=== PATIENT | female | born 1960 ===

== ENCOUNTER → 2017-12-03 | Outpatient (CLI) | payer OTHER | END | disposition home or self-care (01) | LOC: LAB 11:56 | DX: E55.9 Vitamin D deficiency, unspecified (principal); M85.9 Disorder of bone density and structure, unspecified; D64.89 Other specified anemias; D68.8 Other specified coagulation defects; N39.0 Urinary tract infection, site not specified; Z76.89 Persons encountering health services in other specified circumstances; M20.11 Hallux valgus (acquired), right foot; M20.5X1 Other deformities of toe(s) (acquired), right foot; E88.89 Other specified metabolic disorders; A49.02 Methicillin resistant Staphylococcus aureus infection, unspecified site ==

== ENCOUNTER 2018-03-28 16:06 | Emergency (ER) | payer OTHER ==
[~2018-03-28] VITALS: Ht 154.9 cm; Wt 77.1 kg
[2018-03-28] MEDS ORDERED: GLIMEPIRIDE4 MG (16:16)
[2018-03-28] MEDS ORDERED: METFORMIN HCL1000 M1 (16:16)
[2018-03-28] MEDS ORDERED: METOCLOPRAMIDE10 MG PO (22:01)
[2018-03-28] MEDS ORDERED: PEPCID AC20 MG PO (22:01)
== END 2018-03-28 22:31 | disposition home or self-care (01) ==
LOC: ER 16:06
DX: E11.43 Type 2 diabetes mellitus with diabetic autonomic (poly)neuropathy (principal); K31.84 Gastroparesis

== ENCOUNTER → 2020-06-09 | Outpatient (CLI) | payer OTHER ==
[~2020-06-09] MED LIST: GLIMEPIRIDE4 MG; METFORMIN HCL1000 M1; METOCLOPRAMIDE10 MG PO; PEPCID AC20 MG PO
== END | disposition home or self-care (01) ==
LOC: MAMO-SONO 05-26 12:15 → SONOGRAMA 10:31 → MAMO-SONO 13:15
PROVIDERS: ATTEND Specialist
DX: M19.042 Primary osteoarthritis, left hand (principal); M19.041 Primary osteoarthritis, right hand